=== PATIENT | female | born 1950 | race Two or more races ===

== ENCOUNTER 2021-08-31 14:29 | Inpatient (IN) | payer OTHER, MEDICAID ==
[~2021-08-31] VITALS: Ht 152.4 cm; Wt 61.2 kg
[2021-08-31 16:57] LABS: Urine Bacteria NONE SEEN /hpf (None Seen); Urine Blood Negative /uL (Negative); Urine Specific Gravity 1.012 (1.001-1.035); Urine WBC 2 /hpf (0 - 5)
[2021-08-31 17:32] LABS: Basophils # (auto) 0 10 ^3/uL (0-0.2); Basophils % (auto) 0.4 % (0.0-2.0); Eosinophils # (auto) 0 10 ^3/uL (0-0.8); Eosinophils % (auto) 0.2 % (0.0-7.0); Hematocrit 35.3 % (36.0-46.0); Hemoglobin 11.9 g/dL (12.2-16.2); Lymphocytes # (auto) 2.3 10 ^3/uL (0.4-5.4); Lymphocytes % (auto) 19.4 % (10.0-50.0); Mean Corpuscular Hemoglobin 28.7 pg (28.0-32.0); Mean Corpuscular Hgb Conc. 33.7 g/dL (32.0-36.0); Mean Corpuscular Volume 85.2 fL (80.0-100.0); Monocytes # (auto) 0.5 10 ^3/uL (0-1.3); Monocytes % (auto) 4.1 % (0.0-12.0); Neutrophils # (auto) 8.9 10 ^3/uL (1.6-8.6); Neutrophils % (auto) 75.9 % (37.0-80.0); Nucleated Red Blood Cells % 0.1 %; Red Blood Cells 4.14 10^6/uL (4.0-5.20); Red Cell Distribution Width 13.4 % (11.8-14.3); White Blood Cell 11.7 10^3/uL (4.4-10.8)
[2021-08-31 17:36] LABS: BUN/Creatinine Ratio 10.1; Calcium 8.8 mg/dL (8.5-10.1)
[2021-08-31 17:38] LABS: Bilirubin, Total 0.4 mg/dL (0.2-1.0); Total Protein 9.1 g/dL (6.4-8.2)
[2021-08-31 17:54] LABS: Potassium 2.9 mmol/L (3.5-5.1)
[2021-08-31] MEDS ORDERED: fentaNYL CITRATE 100 MCG/2 ML VL IM ONE (18:15)
[2021-08-31] MEDS ORDERED: SODIUM CHLORIDE 0.9% 1,000 ML IV ONE (18:15)
[2021-08-31] MEDS ORDERED: ONDANSETRON HCL 4 MG/2 ML VIAL IV PRN (18:30)
[2021-08-31] MEDS ORDERED: ACETAMINOPHEN 325 MG TAB PO PRN ×2 (18:30)
[2021-08-31] MEDS ORDERED: DOCUSATE SOD 100 MG CAP PO PRN (18:30)
[2021-08-31] MEDS ORDERED: POTASSIUM CHL 20MEQ/100ML 100 ML IV ONE (18:45)
[2021-08-31] MEDS ORDERED: PANTOPRAZOLE 40 MG/10 ML VIAL INJ IV ONE (19:00)
[2021-08-31] MEDS ORDERED: HYDR25TA4 PO (19:10)
[2021-08-31] MEDS ORDERED: CARV3.1240 PO (19:10)
[2021-08-31] MEDS ORDERED: SIMV10TA84 PO (19:10)
[2021-08-31] MEDS ORDERED: cefTRIAXone 1GM/50ML D5W 50 ML IV ONE (19:30)
[2021-08-31 19:36] LABS: INR 1.02 (0.9-1.15)
[2021-08-31 19:42] LABS: Phosphorus 2.5 mg/dL (2.5-4.90)
[2021-08-31] MEDS ORDERED: ALBUTEROL SULF 2.5 MG/0.5ML(0.5%) NEB SOLN NEB PRN (19:45)
[2021-08-31] MEDS: SODIUM CHLORIDE 0.9% 1,000 ML IV SCH (20:00)
[2021-08-31] MEDS ORDERED: metroNIDAZOLE 500MG/100ML 100 ML IV ONE (20:00)
[2021-08-31 20:41] LABS: Amphetamine Screen, Urine NEGATIVE (NEGATIVE); Barbiturate Scree,Urine NEGATIVE (NEGATIVE); Benzodiazephine Screen, Urine NEGATIVE (NEGATIVE); Cannabinoid Screen, Urine NEGATIVE (NEGATIVE); Cocaine Screen, Urine NEGATIVE (NEGATIVE); Opiate Scree,Urine NEGATIVE (NEGATIVE); Phencyclidine Screen, Urine NEGATIVE (NEGATIVE)
[2021-08-31] MEDS: ATORVASTATIN 20 MG TAB PO SCH (22:45)
[2021-08-31 23:19] VITALS: BP 149/82
[2021-09-01] VITALS (7 sets, daily range): BP systolic 146–174; BP diastolic 51–99
[2021-09-01] MEDS ORDERED: AMLO-489 PO (03:30)
[2021-09-01] MEDS ORDERED: LOSA-39 PO (03:30)
[2021-09-01] MEDS: metroNIDAZOLE 500MG/100ML 100 ML IV SCH ×3 (06:04→23:35)
[2021-09-01 06:47] LABS: Basophils # (auto) 0 10 ^3/uL (0-0.2); Basophils % (auto) 0.3 % (0.0-2.0); Eosinophils # (auto) 0 10 ^3/uL (0-0.8); Eosinophils % (auto) 0.6 % (0.0-7.0); Hematocrit 32.7 % (36.0-46.0); Hemoglobin 11.3 g/dL (12.2-16.2); Lymphocytes # (auto) 2.4 10 ^3/uL (0.4-5.4); Lymphocytes % (auto) 27.6 % (10.0-50.0); Mean Corpuscular Hemoglobin 29.5 pg (28.0-32.0); Mean Corpuscular Hgb Conc. 34.5 g/dL (32.0-36.0); Mean Corpuscular Volume 85.6 fL (80.0-100.0); Monocytes # (auto) 0.5 10 ^3/uL (0-1.3); Neutrophils # (auto) 5.6 10 ^3/uL (1.6-8.6); Neutrophils % (auto) 65.5 % (37.0-80.0); Red Blood Cells 3.82 10^6/uL (4.0-5.20); Red Cell Distribution Width 13.3 % (11.8-14.3); White Blood Cell 8.6 10^3/uL (4.4-10.8)
[2021-09-01 07:04] LABS: Albumin 2.7 g/dL (3.4-5.0); Calcium 8.2 mg/dL (8.5-10.1)
[2021-09-01 07:06] LABS: Bilirubin, Total 0.3 mg/dL (0.2-1.0); Total Protein 8.1 g/dL (6.4-8.2)
[2021-09-01 07:19] LABS: Potassium 2.9 mmol/L (3.5-5.1)
[2021-09-01] MEDS: SODIUM CHLORIDE 0.9% 1,000 ML IV SCH ×3 (08:47→21:35)
[2021-09-01] MEDS: CARVEDILOL 3.125 MG TAB PO SCH (08:49)
[2021-09-01] MEDS: HCTZ 25 MG TAB PO SCH (08:49)
[2021-09-01] MEDS: ENOXAPARIN SOD 30 MG/0.3 ML SYRINGE SC SCH (08:50)
[2021-09-01] MEDS ORDERED: POTASSIUM CHL 20MEQ/100ML 100 ML IV ONE (11:30)
[2021-09-01] MEDS: POTASSIUM CHL 20MEQ/100ML 100 ML IV SCH ×4 (12:42→20:50)
[2021-09-01] MEDS: hydrALAZINE HCL 20 MG/ML VL IV PRN (17:15)
[2021-09-01] MEDS: HYDROcodone-ACET 5/325MG TAB PO PRN (18:11)
[2021-09-01] MEDS: cefTRIAXone 1GM/50ML D5W 50 ML IV SCH (22:33)
[2021-09-01] MEDS: PANTOPRAZOLE 40 MG/10 ML VIAL INJ IV SCH (23:01)
[2021-09-01] MEDS: ATORVASTATIN 20 MG TAB PO SCH (23:01)
[2021-09-02] MEDS: HYDROcodone-ACET 5/325MG TAB PO PRN ×2 (02:54→18:50)
[2021-09-02] MEDS ORDERED: INFLUENZA QUAD 2021-2022 0.5 ML SYRG IM ONE (03:15)
[2021-09-02 05:04] VITALS: BP 146/85
[2021-09-02 05:52] LABS: Basophils # (auto) 0 10 ^3/uL (0-0.2); Basophils % (auto) 0.3 % (0.0-2.0); Eosinophils # (auto) 0 10 ^3/uL (0-0.8); Eosinophils % (auto) 0.4 % (0.0-7.0); Hematocrit 31.4 % (36.0-46.0); Hemoglobin 10.6 g/dL (12.2-16.2); Lymphocytes # (auto) 1.6 10 ^3/uL (0.4-5.4); Lymphocytes % (auto) 17.8 % (10.0-50.0); Mean Corpuscular Hemoglobin 29.1 pg (28.0-32.0); Mean Corpuscular Hgb Conc. 33.8 g/dL (32.0-36.0); Mean Corpuscular Volume 86.1 fL (80.0-100.0); Monocytes # (auto) 0.5 10 ^3/uL (0-1.3); Monocytes % (auto) 6.2 % (0.0-12.0); Neutrophils # (auto) 6.7 10 ^3/uL (1.6-8.6); Neutrophils % (auto) 75.3 % (37.0-80.0); Red Blood Cells 3.65 10^6/uL (4.0-5.20); Red Cell Distribution Width 13.9 % (11.8-14.3); White Blood Cell 8.9 10^3/uL (4.4-10.8)
[2021-09-02] MEDS: SODIUM CHLORIDE 0.9% 1,000 ML IV SCH ×3 (05:55→22:45)
[2021-09-02 06:12] LABS: Albumin 2.6 g/dL (3.4-5.0); Calcium 7.8 mg/dL (8.5-10.1); Potassium 3.5 mmol/L (3.5-5.1)
[2021-09-02 06:15] LABS: Bilirubin, Total 0.2 mg/dL (0.2-1.0); Total Protein 7.9 g/dL (6.4-8.2)
[2021-09-02] MEDS: metroNIDAZOLE 500MG/100ML 100 ML IV SCH ×3 (06:26→22:43)
[2021-09-02 09:00] VITALS: BP 149/91
[2021-09-02] MEDS: CARVEDILOL 3.125 MG TAB PO SCH (10:05)
[2021-09-02] MEDS: MORPHINE SULFATE 4 MG/ML SYR/VIAL IV PRN (10:06)
[2021-09-02] MEDS: HCTZ 25 MG TAB PO SCH (10:06)
[2021-09-02] MEDS: ENOXAPARIN SOD 30 MG/0.3 ML SYRINGE SC SCH (10:07)
[2021-09-02 13:00] VITALS: BP 145/85
[2021-09-02] MEDS: hydrALAZINE HCL 20 MG/ML VL IV PRN (16:00)
[2021-09-02 17:00] VITALS: BP 158/87
[2021-09-02] MEDS: SALINE 0.65 % NASAL SPRAY 45ML BOTTLE EACHNOSTRI SCH ×2 (17:49→22:43)
[2021-09-02] MEDS: POTASSIUM CHL 20MEQ/100ML 100 ML IV SCH (20:16)
[2021-09-02] MEDS: cefTRIAXone 1GM/50ML D5W 50 ML IV SCH (21:46)
[2021-09-02 22:00] VITALS: BP 148/81
[2021-09-02] MEDS: PANTOPRAZOLE 40 MG/10 ML VIAL INJ IV SCH (22:43)
[2021-09-02] MEDS: ATORVASTATIN 20 MG TAB PO SCH (22:44)
[2021-09-03] MEDS: SALINE 0.65 % NASAL SPRAY 45ML BOTTLE EACHNOSTRI SCH ×4 (05:07→21:19)
[2021-09-03 05:30] LABS: Basophils # (auto) 0.1 10 ^3/uL (0-0.2); Basophils % (auto) 0.5 % (0.0-2.0); Eosinophils # (auto) 0 10 ^3/uL (0-0.8); Eosinophils % (auto) 0.3 % (0.0-7.0); Hemoglobin 11.4 g/dL (12.2-16.2); Lymphocytes % (auto) 18.1 % (10.0-50.0); Mean Corpuscular Hemoglobin 29.8 pg (28.0-32.0); Mean Corpuscular Hgb Conc. 34.5 g/dL (32.0-36.0); Mean Corpuscular Volume 86.2 fL (80.0-100.0); Monocytes # (auto) 0.7 10 ^3/uL (0-1.3); Monocytes % (auto) 6.3 % (0.0-12.0); Neutrophils # (auto) 8.2 10 ^3/uL (1.6-8.6); Neutrophils % (auto) 74.8 % (37.0-80.0); Red Blood Cells 3.83 10^6/uL (4.0-5.20); Red Cell Distribution Width 13.5 % (11.8-14.3); White Blood Cell 10.9 10^3/uL (4.4-10.8)
[2021-09-03 05:49] LABS: Albumin 2.6 g/dL (3.4-5.0); BUN/Creatinine Ratio 9.2
[2021-09-03 05:51] LABS: Bilirubin, Total 0.3 mg/dL (0.2-1.0); Total Protein 8.4 g/dL (6.4-8.2)
[2021-09-03] MEDS: metroNIDAZOLE 500MG/100ML 100 ML IV SCH ×3 (06:24→21:19)
[2021-09-03] MEDS: SODIUM CHLORIDE 0.9% 1,000 ML IV SCH ×3 (07:54→23:35)
[2021-09-03 09:00] VITALS: BP 138/71
[2021-09-03] MEDS: HCTZ 25 MG TAB PO SCH (09:28)
[2021-09-03] MEDS: CARVEDILOL 3.125 MG TAB PO SCH (09:28)
[2021-09-03] MEDS: ENOXAPARIN SOD 30 MG/0.3 ML SYRINGE SC SCH (09:28)
[2021-09-03] MEDS: MORPHINE SULFATE 4 MG/ML SYR/VIAL IV PRN (11:13)
[2021-09-03] MEDS ORDERED: CLINIMIX PER PHARMACY 0 ML IV SCH (12:15)
[2021-09-03 13:00] VITALS: BP 153/85
[2021-09-03] MEDS: hydrALAZINE HCL 20 MG/ML VL IV PRN (16:54)
[2021-09-03 17:00] VITALS: BP 153/83
[2021-09-03] MEDS ORDERED: POTASSIUM CHL 20MEQ/100ML 100 ML IV ONE (17:00)
[2021-09-03 19:10] LABS: INR 1.18 (0.9-1.15); Partial Thromboplastin Time 29.3 sec (23.6-33.0)
[2021-09-03 19:14] VITALS: BP 136/80
[2021-09-03] MEDS ORDERED: AMINO ACID INFUSION IN D10W 1,000 ML IV NR (20:00)
[2021-09-03] MEDS: POTASSIUM CHL 20MEQ/100ML 100 ML IV SCH (21:18)
[2021-09-03] MEDS: ATORVASTATIN 20 MG TAB PO SCH (21:19)
[2021-09-03] MEDS: cefTRIAXone 1GM/50ML D5W 50 ML IV SCH (21:19)
[2021-09-03 22:00] VITALS: BP 147/83
[2021-09-03 22:30] VITALS: BP 147/83
[2021-09-03] MEDS: ACCU-CHEK COMFORT CURVE STRIP VI SCH (23:46)
[2021-09-03] MEDS: InsuLIN REG 1unit/0.01ml Soln (100units/ml) SC SCH (23:46)
[2021-09-04] MEDS ORDERED: DEXTROSE (50%) 50ML SYRG IV SCH
[2021-09-04 01:00] VITALS: BP 145/56
[2021-09-04 05:00] VITALS: BP 159/87
[2021-09-04] MEDS: metroNIDAZOLE 500MG/100ML 100 ML IV SCH ×3 (05:59→19:59)
[2021-09-04] MEDS: ACCU-CHEK COMFORT CURVE STRIP VI SCH ×3 (05:59→17:33)
[2021-09-04] MEDS: SALINE 0.65 % NASAL SPRAY 45ML BOTTLE EACHNOSTRI SCH ×4 (05:59→19:59)
[2021-09-04] MEDS: hydrALAZINE HCL 20 MG/ML VL IV PRN ×2 (06:04→21:53)
[2021-09-04] MEDS: InsuLIN REG 1unit/0.01ml Soln (100units/ml) SC SCH ×3 (06:05→17:44)
[2021-09-04 06:39] LABS: Basophils # (auto) 0.1 10 ^3/uL (0-0.2); Basophils % (auto) 0.7 % (0.0-2.0); Eosinophils # (auto) 0.1 10 ^3/uL (0-0.8); Eosinophils % (auto) 1.2 % (0.0-7.0); Hematocrit 30.9 % (36.0-46.0); Hemoglobin 10.7 g/dL (12.2-16.2); Lymphocytes # (auto) 2.2 10 ^3/uL (0.4-5.4); Lymphocytes % (auto) 25.3 % (10.0-50.0); Mean Corpuscular Hemoglobin 29.5 pg (28.0-32.0); Mean Corpuscular Hgb Conc. 34.7 g/dL (32.0-36.0); Mean Corpuscular Volume 85.1 fL (80.0-100.0); Monocytes # (auto) 0.6 10 ^3/uL (0-1.3); Monocytes % (auto) 6.7 % (0.0-12.0); Neutrophils # (auto) 5.9 10 ^3/uL (1.6-8.6); Neutrophils % (auto) 66.1 % (37.0-80.0); Red Blood Cells 3.63 10^6/uL (4.0-5.20); Red Cell Distribution Width 13.2 % (11.8-14.3); White Blood Cell 8.9 10^3/uL (4.4-10.8)
[2021-09-04 07:30] LABS: Bilirubin, Total 0.2 mg/dL (0.2-1.0); Phosphorus 1.8 mg/dL (2.5-4.90); Total Protein 7.5 g/dL (6.4-8.2)
[2021-09-04 08:10] LABS: Albumin 2.3 g/dL (3.4-5.0); BUN/Creatinine Ratio 12.5; Calcium 7.9 mg/dL (8.5-10.1)
[2021-09-04 08:11] LABS: Magnesium 1.1 mg/dL (1.6-2.6)
[2021-09-04 08:14] LABS: Potassium 2.8 mmol/L (3.5-5.1)
[2021-09-04] MEDS ORDERED: MIDAZOLAM HCL 2MG/2ML 2ml VIAL (1mg/ml) IV ONE (08:15)
[2021-09-04] MEDS ORDERED: fentaNYL CITRATE 100 MCG/2 ML VL IV ONE (08:15)
[2021-09-04] MEDS: SODIUM CHLORIDE 0.9% 1,000 ML IV SCH ×2 (08:23→16:15)
[2021-09-04] MEDS: POTASSIUM CHL 20MEQ/100ML 100 ML IV SCH ×4 (08:45→19:58)
[2021-09-04] MEDS ORDERED: LIDOCAINE 2%HCL (LOCAL ANESTH.) INJ 10ml MDV ONE (08:56)
[2021-09-04 09:00] VITALS: BP 165/77
[2021-09-04] MEDS: CARVEDILOL 3.125 MG TAB PO SCH (10:27)
[2021-09-04] MEDS: HCTZ 25 MG TAB PO SCH (10:28)
[2021-09-04] MEDS: ENOXAPARIN SOD 30 MG/0.3 ML SYRINGE SC SCH (10:28)
[2021-09-04] MEDS ORDERED: SODIUM PHOSP 40 MEQ in D5W 5% 250 ML IV ONE (15:00)
[2021-09-04 15:43] VITALS: BP 143/82
[2021-09-04 16:00] VITALS: BP 143/82
[2021-09-04] MEDS: cefTRIAXone 1GM/50ML D5W 50 ML IV SCH (19:58)
[2021-09-04] MEDS: AMINO ACID INFUSION IN D10W 1,000 ML IV SCH (19:58)
[2021-09-04] MEDS: ATORVASTATIN 20 MG TAB PO SCH (19:59)
[2021-09-04 22:00] VITALS: BP 176/91
[2021-09-05] MEDS: ACCU-CHEK COMFORT CURVE STRIP VI SCH ×4 (00:16→18:00)
[2021-09-05] MEDS: InsuLIN REG 1unit/0.01ml Soln (100units/ml) SC SCH ×4 (00:24→18:16)
[2021-09-05 05:00] VITALS: BP 107/79
[2021-09-05] MEDS: SALINE 0.65 % NASAL SPRAY 45ML BOTTLE EACHNOSTRI SCH ×4 (05:03→23:04)
[2021-09-05] MEDS: SODIUM CHLORIDE 0.9% 1,000 ML IV SCH ×3 (05:03→17:15)
[2021-09-05] MEDS: metroNIDAZOLE 500MG/100ML 100 ML IV SCH ×3 (05:03→23:46)
[2021-09-05 06:29] LABS: Basophils # (auto) 0 10 ^3/uL (0-0.2); Basophils % (auto) 0.4 % (0.0-2.0); Eosinophils # (auto) 0.1 10 ^3/uL (0-0.8); Eosinophils % (auto) 1.1 % (0.0-7.0); Hematocrit 29.3 % (36.0-46.0); Hemoglobin 10.4 g/dL (12.2-16.2); Lymphocytes # (auto) 1.6 10 ^3/uL (0.4-5.4); Lymphocytes % (auto) 21.2 % (10.0-50.0); Mean Corpuscular Hemoglobin 29.7 pg (28.0-32.0); Mean Corpuscular Hgb Conc. 35.4 g/dL (32.0-36.0); Mean Corpuscular Volume 84.1 fL (80.0-100.0); Monocytes # (auto) 0.5 10 ^3/uL (0-1.3); Monocytes % (auto) 6.6 % (0.0-12.0); Neutrophils # (auto) 5.3 10 ^3/uL (1.6-8.6); Neutrophils % (auto) 70.7 % (37.0-80.0); Red Blood Cells 3.49 10^6/uL (4.0-5.20); Red Cell Distribution Width 13.2 % (11.8-14.3); White Blood Cell 7.5 10^3/uL (4.4-10.8)
[2021-09-05 06:54] LABS: Albumin 2.2 g/dL (3.4-5.0); BUN/Creatinine Ratio 11.9; Bilirubin, Total 0.2 mg/dL (0.2-1.0); Calcium 7.2 mg/dL (8.5-10.1); Phosphorus 4.2 mg/dL (2.5-4.90); Total Protein 7.3 g/dL (6.4-8.2)
[2021-09-05 08:18] LABS: Potassium 2.6 mmol/L (3.5-5.1)
[2021-09-05 08:19] LABS: Magnesium 0.9 mg/dL (1.6-2.6)
[2021-09-05 09:00] VITALS: BP 135/78
[2021-09-05] MEDS: MAGNESIUM SULFATE 1GM/100ML 100 ML IV SCH ×2 (10:18→12:11)
[2021-09-05] MEDS: POTASSIUM CHL 20MEQ/100ML 100 ML IV SCH ×5 (10:18→21:34)
[2021-09-05] MEDS: ENOXAPARIN SOD 30 MG/0.3 ML SYRINGE SC SCH (10:38)
[2021-09-05] MEDS: HCTZ 25 MG TAB PO SCH (10:39)
[2021-09-05] MEDS: CARVEDILOL 3.125 MG TAB PO SCH (10:39)
[2021-09-05 13:00] VITALS: BP 143/77
[2021-09-05] MEDS ORDERED: LIDOCAINE 1% (LOCAL ANESTH.) PF 5ml SDV ID ONE (16:45)
[2021-09-05 17:00] VITALS: BP 126/88
[2021-09-05] MEDS: MORPHINE SULFATE 4 MG/ML SYR/VIAL IV PRN (17:20)
[2021-09-05] MEDS: hydrALAZINE HCL 20 MG/ML VL IV PRN (18:51)
[2021-09-05] MEDS ORDERED: CALCIUM GLUC 1,000mg/50ml-NS 50 ML IV ONE (19:00)
[2021-09-05] MEDS: AMINO ACID INFUSION IN D10W 1,000 ML IV SCH (20:32)
[2021-09-05 22:31] VITALS: BP 145/79
[2021-09-05] MEDS: ATORVASTATIN 20 MG TAB PO SCH (23:04)
[2021-09-05] MEDS: SODIUM CHLOR 0.9% PF (SALINE LOCK) 10ML VIAL/SYR IV SCH (23:04)
[2021-09-05] MEDS: cefTRIAXone 1GM/50ML D5W 50 ML IV SCH (23:04)
[2021-09-06] MEDS: ACCU-CHEK COMFORT CURVE STRIP VI SCH ×5 (00:36→22:00)
[2021-09-06] MEDS: InsuLIN REG 1unit/0.01ml Soln (100units/ml) SC SCH ×4 (00:37→22:00)
[2021-09-06] MEDS: TEMAZEPAM 15 MG CAP PO PRN (00:38)
[2021-09-06] MEDS: SODIUM CHLORIDE 0.9% 1,000 ML IV SCH ×3 (03:10→18:05)
[2021-09-06 05:00] VITALS: BP 168/91
[2021-09-06] MEDS: SALINE 0.65 % NASAL SPRAY 45ML BOTTLE EACHNOSTRI SCH ×4 (05:58→22:24)
[2021-09-06] MEDS: metroNIDAZOLE 500MG/100ML 100 ML IV SCH ×3 (05:58→22:00)
[2021-09-06 06:00] LABS: Basophils # (auto) 0 10 ^3/uL (0-0.2); Basophils % (auto) 0.4 % (0.0-2.0); Eosinophils # (auto) 0.2 10 ^3/uL (0-0.8); Eosinophils % (auto) 2.4 % (0.0-7.0); Hematocrit 29.2 % (36.0-46.0); Lymphocytes # (auto) 1.9 10 ^3/uL (0.4-5.4); Lymphocytes % (auto) 28.3 % (10.0-50.0); Mean Corpuscular Hemoglobin 29.1 pg (28.0-32.0); Mean Corpuscular Hgb Conc. 34.4 g/dL (32.0-36.0); Mean Corpuscular Volume 84.7 fL (80.0-100.0); Monocytes # (auto) 0.5 10 ^3/uL (0-1.3); Monocytes % (auto) 7.8 % (0.0-12.0); Neutrophils % (auto) 61.1 % (37.0-80.0); Red Blood Cells 3.45 10^6/uL (4.0-5.20); Red Cell Distribution Width 13.4 % (11.8-14.3); White Blood Cell 6.6 10^3/uL (4.4-10.8)
[2021-09-06] MEDS: hydrALAZINE HCL 20 MG/ML VL IV PRN (06:01)
[2021-09-06 06:21] LABS: Albumin 2.1 g/dL (3.4-5.0); Calcium 7.6 mg/dL (8.5-10.1); Magnesium 1.2 mg/dL (1.6-2.6); Potassium 3.2 mmol/L (3.5-5.1)
[2021-09-06 06:24] LABS: BUN/Creatinine Ratio 8.6; Bilirubin, Total 0.2 mg/dL (0.2-1.0); Phosphorus 1.8 mg/dL (2.5-4.90); Total Protein 7.2 g/dL (6.4-8.2)
[2021-09-06 08:42] VITALS: BP 142/75
[2021-09-06] MEDS: ENOXAPARIN SOD 30 MG/0.3 ML SYRINGE SC SCH (08:54)
[2021-09-06] MEDS: CARVEDILOL 3.125 MG TAB PO SCH (08:55)
[2021-09-06] MEDS: HCTZ 25 MG TAB PO SCH (08:56)
[2021-09-06] MEDS: SODIUM CHLOR 0.9% PF (SALINE LOCK) 10ML VIAL/SYR IV SCH ×2 (08:56→22:26)
[2021-09-06] MEDS: MAGNESIUM SULFATE 1GM/100ML 100 ML IV SCH ×4 (08:56→14:19)
[2021-09-06] MEDS ORDERED: POTASSIUM PHOSPHATE 44 MEQ in D5W 5% 250 ML IV ONE (11:00)
[2021-09-06] MEDS ORDERED: DEXTROSE (50%) 50ML SYRG IV PRN (12:15)
[2021-09-06] MEDS ORDERED: ACCU-CHEK COMFORT CURVE STRIP VI SCH ×2 (12:15→17:00)
[2021-09-06 13:00] VITALS: BP 144/77
[2021-09-06 16:22] VITALS: BP 146/78
[2021-09-06] MEDS: POTASSIUM CHL 20MEQ/100ML 100 ML IV SCH (20:00)
[2021-09-06] MEDS: cefTRIAXone 1GM/50ML D5W 50 ML IV SCH (21:00)
[2021-09-06 22:00] VITALS: BP 167/92
[2021-09-06] MEDS: ATORVASTATIN 20 MG TAB PO SCH (22:00)
[2021-09-07] MEDS: SODIUM CHLORIDE 0.9% 1,000 ML IV SCH ×4 (03:02→22:23)
[2021-09-07 05:00] VITALS: BP 144/73
[2021-09-07 05:59] LABS: Basophils # (auto) 0 10 ^3/uL (0-0.2); Basophils % (auto) 0.5 % (0.0-2.0); Eosinophils # (auto) 0.3 10 ^3/uL (0-0.8); Eosinophils % (auto) 5.1 % (0.0-7.0); Hematocrit 29.1 % (36.0-46.0); Lymphocytes # (auto) 2.4 10 ^3/uL (0.4-5.4); Lymphocytes % (auto) 42.1 % (10.0-50.0); Mean Corpuscular Hemoglobin 29.2 pg (28.0-32.0); Mean Corpuscular Hgb Conc. 34.3 g/dL (32.0-36.0); Mean Corpuscular Volume 85.4 fL (80.0-100.0); Monocytes # (auto) 0.4 10 ^3/uL (0-1.3); Monocytes % (auto) 7.5 % (0.0-12.0); Neutrophils # (auto) 2.5 10 ^3/uL (1.6-8.6); Neutrophils % (auto) 44.8 % (37.0-80.0); Red Cell Distribution Width 13.8 % (11.8-14.3); White Blood Cell 5.6 10^3/uL (4.4-10.8)
[2021-09-07] MEDS: SALINE 0.65 % NASAL SPRAY 45ML BOTTLE EACHNOSTRI SCH ×4 (06:18→22:19)
[2021-09-07] MEDS: metroNIDAZOLE 500MG/100ML 100 ML IV SCH ×3 (06:18→22:20)
[2021-09-07 06:21] LABS: Albumin 2.2 g/dL (3.4-5.0); Calcium 7.9 mg/dL (8.5-10.1); Potassium 3.5 mmol/L (3.5-5.1)
[2021-09-07 06:26] LABS: BUN/Creatinine Ratio 5.5; Bilirubin, Total 0.2 mg/dL (0.2-1.0); Total Protein 7.3 g/dL (6.4-8.2)
[2021-09-07] MEDS: InsuLIN REG 1unit/0.01ml Soln (100units/ml) SC SCH ×4 (07:00→22:26)
[2021-09-07] MEDS: ACCU-CHEK COMFORT CURVE STRIP VI SCH ×4 (07:17→22:26)
[2021-09-07 08:00] VITALS: BP 181/97
[2021-09-07] MEDS: SODIUM CHLOR 0.9% PF (SALINE LOCK) 10ML VIAL/SYR IV SCH ×2 (11:56→22:19)
[2021-09-07] MEDS: CARVEDILOL 3.125 MG TAB PO SCH (11:57)
[2021-09-07 12:00] VITALS: BP 160/85
[2021-09-07] MEDS: ENOXAPARIN SOD 30 MG/0.3 ML SYRINGE SC SCH (12:01)
[2021-09-07] MEDS: HCTZ 25 MG TAB PO SCH (12:01)
[2021-09-07 16:00] VITALS: BP 145/72
[2021-09-07] MEDS: POTASSIUM CHL 20MEQ/100ML 100 ML IV SCH (20:00)
[2021-09-07] MEDS: cefTRIAXone 1GM/50ML D5W 50 ML IV SCH (21:00)
[2021-09-07 22:00] VITALS: BP 176/97
[2021-09-07] MEDS: ATORVASTATIN 20 MG TAB PO SCH (22:20)
[2021-09-07] MEDS: TEMAZEPAM 15 MG CAP PO PRN (23:47)
[2021-09-08 04:31] VITALS: BP 159/89
[2021-09-08] MEDS: SALINE 0.65 % NASAL SPRAY 45ML BOTTLE EACHNOSTRI SCH ×4 (05:56→21:55)
[2021-09-08] MEDS: metroNIDAZOLE 500MG/100ML 100 ML IV SCH ×3 (05:56→22:23)
[2021-09-08 06:21] LABS: Basophils # (auto) 0 10 ^3/uL (0-0.2); Basophils % (auto) 0.6 % (0.0-2.0); Eosinophils # (auto) 0.2 10 ^3/uL (0-0.8); Eosinophils % (auto) 4.1 % (0.0-7.0); Hemoglobin 10.2 g/dL (12.2-16.2); Mean Corpuscular Volume 85.3 fL (80.0-100.0); Monocytes # (auto) 0.4 10 ^3/uL (0-1.3); Monocytes % (auto) 7.5 % (0.0-12.0); Neutrophils % (auto) 52.8 % (37.0-80.0); Nucleated Red Blood Cells % 0.1 %; Red Blood Cells 3.52 10^6/uL (4.0-5.20); Red Cell Distribution Width 13.7 % (11.8-14.3); White Blood Cell 5.7 10^3/uL (4.4-10.8)
[2021-09-08] MEDS: ACCU-CHEK COMFORT CURVE STRIP VI SCH ×4 (06:33→22:25)
[2021-09-08] MEDS: InsuLIN REG 1unit/0.01ml Soln (100units/ml) SC SCH ×4 (06:33→22:00)
[2021-09-08 06:37] LABS: Potassium 3.8 mmol/L (3.5-5.1)
[2021-09-08 06:54] LABS: Albumin 2.3 g/dL (3.4-5.0); BUN/Creatinine Ratio 4.7; Bilirubin, Total 0.1 mg/dL (0.2-1.0); Calcium 8.4 mg/dL (8.5-10.1); Total Protein 7.5 g/dL (6.4-8.2)
[2021-09-08] MEDS: hydrALAZINE HCL 20 MG/ML VL IV PRN (07:49)
[2021-09-08 09:00] VITALS: BP 144/77
[2021-09-08] MEDS: SODIUM CHLOR 0.9% PF (SALINE LOCK) 10ML VIAL/SYR IV SCH ×2 (09:29→22:24)
[2021-09-08] MEDS: ENOXAPARIN SOD 30 MG/0.3 ML SYRINGE SC SCH (09:30)
[2021-09-08] MEDS: HCTZ 25 MG TAB PO SCH (09:30)
[2021-09-08] MEDS: CARVEDILOL 3.125 MG TAB PO SCH (09:30)
[2021-09-08 12:56] VITALS: BP 172/89
[2021-09-08] MEDS: SODIUM CHLORIDE 0.9% 1,000 ML IV SCH ×2 (14:42→16:25)
[2021-09-08 17:00] VITALS: BP 154/98
[2021-09-08] MEDS: POTASSIUM CHL 20MEQ/100ML 100 ML IV SCH (20:28)
[2021-09-08] MEDS: cefTRIAXone 1GM/50ML D5W 50 ML IV SCH (20:29)
[2021-09-08 21:56] VITALS: BP 174/83
[2021-09-08] MEDS: ATORVASTATIN 20 MG TAB PO SCH (22:25)
[2021-09-09] MEDS: SODIUM CHLORIDE 0.9% 1,000 ML IV SCH ×3 (03:52→21:32)
[2021-09-09 04:45] VITALS: BP 157/86
[2021-09-09] MEDS: SALINE 0.65 % NASAL SPRAY 45ML BOTTLE EACHNOSTRI SCH ×4 (05:52→23:11)
[2021-09-09] MEDS: metroNIDAZOLE 500MG/100ML 100 ML IV SCH ×3 (06:00→23:05)
[2021-09-09] MEDS: InsuLIN REG 1unit/0.01ml Soln (100units/ml) SC SCH ×4 (06:47→21:33)
[2021-09-09] MEDS: hydrALAZINE HCL 20 MG/ML VL IV PRN (07:03)
[2021-09-09] MEDS: ACCU-CHEK COMFORT CURVE STRIP VI SCH ×4 (07:03→21:33)
[2021-09-09 07:53] LABS: Basophils # (auto) 0 10 ^3/uL (0-0.2); Basophils % (auto) 0.4 % (0.0-2.0); Eosinophils # (auto) 0.1 10 ^3/uL (0-0.8); Lymphocytes # (auto) 2.1 10 ^3/uL (0.4-5.4); Monocytes # (auto) 0.5 10 ^3/uL (0-1.3); Monocytes % (auto) 5.8 % (0.0-12.0); Nucleated Red Blood Cells % 0.1 %
[2021-09-09 07:55] LABS: Eosinophils % (auto) 1.8 % (0.0-7.0); Hematocrit 29.2 % (36.0-46.0); Hemoglobin 10.2 g/dL (12.2-16.2); Lymphocytes % (auto) 26.1 % (10.0-50.0); Mean Corpuscular Hemoglobin 29.6 pg (28.0-32.0); Mean Corpuscular Volume 84.6 fL (80.0-100.0); Neutrophils # (auto) 5.2 10 ^3/uL (1.6-8.6); Neutrophils % (auto) 65.9 % (37.0-80.0); Red Blood Cells 3.45 10^6/uL (4.0-5.20); Red Cell Distribution Width 13.8 % (11.8-14.3); White Blood Cell 7.9 10^3/uL (4.4-10.8)
[2021-09-09 08:11] LABS: Potassium 3.3 mmol/L (3.5-5.1)
[2021-09-09 08:17] LABS: Albumin 2.3 g/dL (3.4-5.0); BUN/Creatinine Ratio 3.4; Bilirubin, Total 0.2 mg/dL (0.2-1.0); Calcium 8.4 mg/dL (8.5-10.1); Total Protein 7.7 g/dL (6.4-8.2)
[2021-09-09 09:00] VITALS: BP 150/93
[2021-09-09] MEDS: ENOXAPARIN SOD 30 MG/0.3 ML SYRINGE SC SCH (10:32)
[2021-09-09] MEDS: SODIUM CHLOR 0.9% PF (SALINE LOCK) 10ML VIAL/SYR IV SCH ×2 (10:32→23:06)
[2021-09-09] MEDS: HCTZ 25 MG TAB PO SCH (10:48)
[2021-09-09] MEDS: CARVEDILOL 3.125 MG TAB PO SCH (10:48)
[2021-09-09 13:00] VITALS: BP 153/93
[2021-09-09 17:00] VITALS: BP 157/92
[2021-09-09 20:00] VITALS: BP 140/88
[2021-09-09] MEDS: POTASSIUM CHL 20MEQ/100ML 100 ML IV SCH (20:20)
[2021-09-09] MEDS: cefTRIAXone 1GM/50ML D5W 50 ML IV SCH (21:31)
[2021-09-09 22:19] VITALS: BP 160/93
[2021-09-09] MEDS: ATORVASTATIN 20 MG TAB PO SCH (23:06)
[2021-09-10 04:40] LABS: Basophils # (auto) 0 10 ^3/uL (0-0.2); Basophils % (auto) 0.6 % (0.0-2.0); Hemoglobin 10.7 g/dL (12.2-16.2); Lymphocytes # (auto) 2.1 10 ^3/uL (0.4-5.4); Mean Corpuscular Volume 85.6 fL (80.0-100.0); Monocytes # (auto) 0.5 10 ^3/uL (0-1.3); Neutrophils # (auto) 4.5 10 ^3/uL (1.6-8.6); Nucleated Red Blood Cells % 0.1 %; Red Cell Distribution Width 13.8 % (11.8-14.3); White Blood Cell 7.3 10^3/uL (4.4-10.8)
[2021-09-10 04:43] LABS: Eosinophils # (auto) 0.1 10 ^3/uL (0-0.8); Eosinophils % (auto) 1.8 % (0.0-7.0); Hematocrit 30.9 % (36.0-46.0); Lymphocytes % (auto) 28.5 % (10.0-50.0); Mean Corpuscular Hemoglobin 29.6 pg (28.0-32.0); Mean Corpuscular Hgb Conc. 34.6 g/dL (32.0-36.0); Monocytes % (auto) 6.9 % (0.0-12.0); Neutrophils % (auto) 62.2 % (37.0-80.0); Red Blood Cells 3.61 10^6/uL (4.0-5.20)
[2021-09-10 04:55] VITALS: BP 162/94
[2021-09-10 05:03] LABS: Albumin 2.5 g/dL (3.4-5.0); Calcium 8.6 mg/dL (8.5-10.1); Potassium 3.4 mmol/L (3.5-5.1)
[2021-09-10 05:08] LABS: BUN/Creatinine Ratio 5.8; Bilirubin, Total 0.2 mg/dL (0.2-1.0); Total Protein 8.1 g/dL (6.4-8.2)
[2021-09-10] MEDS: metroNIDAZOLE 500MG/100ML 100 ML IV SCH (05:40)
[2021-09-10] MEDS: SALINE 0.65 % NASAL SPRAY 45ML BOTTLE EACHNOSTRI SCH ×4 (05:40→22:15)
[2021-09-10] MEDS: SODIUM CHLORIDE 0.9% 1,000 ML IV SCH ×3 (05:41→22:16)
[2021-09-10] MEDS: InsuLIN REG 1unit/0.01ml Soln (100units/ml) SC SCH ×4 (06:36→22:00)
[2021-09-10] MEDS: ACCU-CHEK COMFORT CURVE STRIP VI SCH ×4 (06:38→22:16)
[2021-09-10 09:00] VITALS: BP 168/93
[2021-09-10] MEDS: CARVEDILOL 3.125 MG TAB PO SCH (09:41)
[2021-09-10] MEDS: SODIUM CHLOR 0.9% PF (SALINE LOCK) 10ML VIAL/SYR IV SCH ×2 (09:41→22:15)
[2021-09-10] MEDS: HCTZ 25 MG TAB PO SCH (09:42)
[2021-09-10] MEDS: ENOXAPARIN SOD 30 MG/0.3 ML SYRINGE SC SCH (09:43)
[2021-09-10] MEDS ORDERED: MEROPENEM 1GM IVPB 100 ML IV SCH (12:00)
[2021-09-10] MEDS ORDERED: ERTAPENEM SOD INJ 1 GM in SODIUM CHL 0.9% 50 ML IV ONE (12:45)
[2021-09-10 17:00] VITALS: BP 173/98
[2021-09-10 20:00] VITALS: BP 140/80
[2021-09-10] MEDS: POTASSIUM CHL 20MEQ/100ML 100 ML IV SCH (20:33)
[2021-09-10] MEDS: ATORVASTATIN 20 MG TAB PO SCH (22:15)
[2021-09-10] MEDS: LINEZOLID 600MG TABLET PO SCH (22:15)
[2021-09-11 05:00] VITALS: BP 152/92
[2021-09-11] MEDS: SALINE 0.65 % NASAL SPRAY 45ML BOTTLE EACHNOSTRI SCH ×4 (05:51→22:39)
[2021-09-11] MEDS: ACCU-CHEK COMFORT CURVE STRIP VI SCH ×4 (05:52→22:40)
[2021-09-11] MEDS: SODIUM CHLORIDE 0.9% 1,000 ML IV SCH (05:52)
[2021-09-11] MEDS: InsuLIN REG 1unit/0.01ml Soln (100units/ml) SC SCH ×4 (05:53→22:00)
[2021-09-11 06:11] LABS: Basophils # (auto) 0 10 ^3/uL (0-0.2); Basophils % (auto) 0.6 % (0.0-2.0); Eosinophils # (auto) 0.1 10 ^3/uL (0-0.8); Eosinophils % (auto) 1.4 % (0.0-7.0); Hematocrit 30.6 % (36.0-46.0); Hemoglobin 10.5 g/dL (12.2-16.2); Lymphocytes # (auto) 2.2 10 ^3/uL (0.4-5.4); Mean Corpuscular Hemoglobin 29.3 pg (28.0-32.0); Mean Corpuscular Hgb Conc. 34.3 g/dL (32.0-36.0); Mean Corpuscular Volume 85.4 fL (80.0-100.0); Monocytes # (auto) 0.4 10 ^3/uL (0-1.3); Monocytes % (auto) 6.3 % (0.0-12.0); Neutrophils % (auto) 59.7 % (37.0-80.0); Nucleated Red Blood Cells % 0.1 %; Red Blood Cells 3.58 10^6/uL (4.0-5.20); Red Cell Distribution Width 13.8 % (11.8-14.3); White Blood Cell 6.7 10^3/uL (4.4-10.8)
[2021-09-11 06:20] LABS: Potassium 4.1 mmol/L (3.5-5.1)
[2021-09-11 06:29] LABS: Albumin 2.6 g/dL (3.4-5.0); BUN/Creatinine Ratio 6.8; Bilirubin, Total 0.2 mg/dL (0.2-1.0); Total Protein 8.4 g/dL (6.4-8.2)
[2021-09-11 09:00] VITALS: BP 168/99
[2021-09-11] MEDS: HCTZ 25 MG TAB PO SCH (10:00)
[2021-09-11] MEDS: SODIUM CHLOR 0.9% PF (SALINE LOCK) 10ML VIAL/SYR IV SCH ×2 (10:00→22:39)
[2021-09-11] MEDS: CARVEDILOL 3.125 MG TAB PO SCH (10:00)
[2021-09-11] MEDS: ERTAPENEM SOD INJ 1 GM in SODIUM CHL 0.9% 50 ML IV SCH (11:11)
[2021-09-11] MEDS: LINEZOLID 600MG TABLET PO SCH ×2 (11:12→22:39)
[2021-09-11] MEDS: ENOXAPARIN SOD 30 MG/0.3 ML SYRINGE SC SCH (11:12)
[2021-09-11 13:00] VITALS: BP 173/100
[2021-09-11 17:00] VITALS: BP 182/103
[2021-09-11 20:00] VITALS: BP 142/84
[2021-09-11] MEDS: POTASSIUM CHL 20MEQ/100ML 100 ML IV SCH (20:12)
[2021-09-11 22:00] VITALS: BP 153/87
[2021-09-11] MEDS: ATORVASTATIN 20 MG TAB PO SCH (22:39)
[2021-09-12 05:00] VITALS: BP 158/111
[2021-09-12] MEDS: SALINE 0.65 % NASAL SPRAY 45ML BOTTLE EACHNOSTRI SCH ×3 (06:33→18:00)
[2021-09-12] MEDS: InsuLIN REG 1unit/0.01ml Soln (100units/ml) SC SCH ×3 (06:33→17:00)
[2021-09-12] MEDS: ACCU-CHEK COMFORT CURVE STRIP VI SCH ×3 (06:34→17:00)
[2021-09-12] MEDS: SODIUM CHLORIDE 0.9% 1,000 ML IV SCH ×2 (07:35→15:55)
[2021-09-12 08:42] VITALS: BP 163/94
[2021-09-12] MEDS: SODIUM CHLOR 0.9% PF (SALINE LOCK) 10ML VIAL/SYR IV SCH (09:22)
[2021-09-12] MEDS: CARVEDILOL 3.125 MG TAB PO SCH (09:24)
[2021-09-12] MEDS: HCTZ 25 MG TAB PO SCH (09:26)
[2021-09-12] MEDS: ENOXAPARIN SOD 30 MG/0.3 ML SYRINGE SC SCH (09:28)
[2021-09-12] MEDS: LINEZOLID 600MG TABLET PO SCH (09:30)
[2021-09-12] MEDS: hydrALAZINE HCL 20 MG/ML VL IV PRN (09:31)
[2021-09-12] MEDS ORDERED: LINE1TAB6 PO (11:17)
[2021-09-12] MEDS: ERTAPENEM SOD INJ 1 GM in SODIUM CHL 0.9% 50 ML IV SCH (12:25)
[2021-09-12 13:00] VITALS: BP 128/84
[2021-09-12 16:53] VITALS: BP 132/86
== END 2021-09-12 18:28 | disposition home health service (06) | DRG 871 ==
LOC: ER 14:29 → OVERFLOW 18:41 → WEST WING 21:56
PROVIDERS: ADMIT Registered Nurse; ATTEND Family Medicine
PROC: 0D9670Z Drainage of Stomach with Drainage Device, Via Natural or Artificial Opening (ICD-10-PCS; principal; 2021-09-01)
PROC: 0D9 Gastrointestinal System, Drainage (ICD-10-PCS; 2021-09-04)
PROC: 02HV33Z Insertion of Infusion Device into Superior Vena Cava, Percutaneous Approach (ICD-10-PCS; 2021-09-05)
PROC: 3E0336Z Introduction of Nutritional Substance into Peripheral Vein, Percutaneous Approach (ICD-10-PCS; 2021-09-05)
DX: A41.9 Sepsis, unspecified organism (principal); K85.90 Acute pancreatitis without necrosis or infection, unspecified; N17.0 Acute kidney failure with tubular necrosis; K57.80 Diverticulitis of intestine, part unspecified, with perforation and abscess without bleeding; M48.54XA Collapsed vertebra, not elsewhere classified, thoracic region, initial encounter for fracture; E87.6 Hypokalemia; E88.09 Other disorders of plasma-protein metabolism, not elsewhere classified; K59.00 Constipation, unspecified; K76.0 Fatty (change of) liver, not elsewhere classified; R80.9 Proteinuria, unspecified; E11.22 Type 2 diabetes mellitus with diabetic chronic kidney disease; N18.9 Chronic kidney disease, unspecified; E83.42 Hypomagnesemia; Z20.822 Contact with and (suspected) exposure to COVID-19; Z80.41 Family history of malignant neoplasm of ovary; E78.5 Hyperlipidemia, unspecified; Z90.710 Acquired absence of both cervix and uterus; B96.1 Klebsiella pneumoniae [K. pneumoniae] as the cause of diseases classified elsewhere
CPT/HCPCS: 10005; 36415; 36569; 71045; 72193; 74176; 77012; 80053; 80061; 80307; 81001; 82247; 82962; 83036; 83690; 83735; 84100; 84443; 85025; 85610; 85730; 87077; 87186; 87205; 93005; 96365; 96367; 96372; 96375; 97163; C9113; G0378; J0696; J1335; J1815; J2001; J2185; J3480; J3490; J7060